=== PATIENT | female | born 1980 | race Caucasian/White ===

== ENCOUNTER 2016-08-04 12:28 | Emergency (ER) | payer OTHER ==
[~2016-08-04] VITALS: Ht 152.4 cm; Wt 61.9 kg
[2016-08-04] MEDS ORDERED: DEPO-PROVER150 MG/ML IM (13:20)
[2016-08-04 13:33] LABS: ADD MIUA? NO; BILIRUBIN NEGATIVE; BLOOD NEGATIVE; COLOR YELLOW ((YELLOW)); GLUCOSE (STRIP) NEGATIVE; KETONES NEGATIVE; LEUKOCYTES NEGATIVE; NITRITE NEGATIVE; PROTEIN (STRIP) NEGATIVE; UCUL ADDED? NO; UROBILINOGEN 0.2 MG/DL (0.2-1.0)
[2016-08-04 13:40] LABS: HEMATOCRIT 37.6 % (36.0-46.0); MCH 29.2 PG (29.0-34.0); MCHC 31.1 G/DL (30.0-36.0); MCV 93.8 FL (83-99); MEAN PLAT.VOLUME 9.8 uM^3 (9.5-12.4); PLATELET COUNT 241 K/uL (156-360); RBC DIS.WIDTH-CV 12.4 % (11.8-14.6); RBC DIS.WIDTH-SD 42.9 % (39-53); RED BLOOD COUNT 4.01 M/uL (3.80-5.20)
[2016-08-04 14:06] LABS: QUANTITATIVE HCG 201.8 MIU/ML
[2016-08-04 14:21] LABS: CHLORIDE 108 mEq/L (99-109); POTASSIUM 3.7 mEq/L (3.7-5.4); SODIUM 143 mEq/L (136-147)
[2016-08-04 14:23] LABS: GLUCOSE 78 mg/dL (70-99)
[2016-08-04 14:25] LABS: ANION GAP 10 MEQ/L (2-14); TOTAL BILIRUBIN 0.6 mg/dL (0.0-1.0)
[2016-08-04 14:27] LABS: ALKALINE PHOSPHATASE 83 IU/L (3-129); GFR ESTIMATE (CALCULATED) > 59 mL/min/
[2016-08-04 14:28] LABS: UREA NITROGEN (BUN) 7 mg/dL (9-23)
[2016-08-04] MEDS ORDERED: CLEOCIN VAGINAL40 MG VG (14:54)
[2016-08-04] MEDS ORDERED: TYLENOL EXTRA500 MG PO (14:54)
[2016-08-04 15:07] VITALS: BP 116/68
[2016-08-07 12:20] LABS: CHLAMYDIA TRACHOMATIS NEGATIVE; NEISSERIA GONORRHOEAE NEGATIVE
== END 2016-08-04 15:08 | disposition home or self-care (01) ==
LOC: EME 12:28
PROVIDERS: Emergency Medicine
DX: O26.891 Other specified pregnancy related conditions, first trimester (principal); R10.2 Pelvic and perineal pain; N89.8 Other specified noninflammatory disorders of vagina; Z3A.00 Weeks of gestation of pregnancy not specified
CPT/HCPCS: 80053; 81003; 84702; 85027; 87210; 87491; 87591; 99281; 99284